=== PATIENT | female | born 1985 | race Caucasian/White ===

== ENCOUNTER → 2016-08-31 | Outpatient (CLI) | payer OTHER ==
--- NOTE | 2016-09-01 06:03 | US ---
EXAMINATION TYPE: US OB <=14 wks transvag DATE OF EXAM: 08/31/2016 5:06 PM COMPARISON: NONE CLINICAL HISTORY: O46.91 Spotting First Trimester. EXAM PERFORMED: Transvaginal (TV) and EXAM MEASUREMENTS: GESTATIONAL AGE / DATING Physician Established: Not yet established Dates by LMP: (6 weeks/6 days) EDC: 04/20/17 Dates by First Scan: 1st scan today Dates by Current Scan for: ( 6 weeks/2 days) EDC: 04/24/17 MATERNAL ANATOMY Uterus: 9.1 x 5.1 x 6.5cm Right Ovary: Not visualized due to overlying bowel gas Left Ovary: 1.6 x 1.1 x 1.2 Post CDS / Adnexa: wnl Presence of free fluid: yes ff in cul de sac Presence of subchorionic bleed: none identified GESTATION / SURVEY CRL: 5.1 ( 6 weeks/2 days) Yolk Sac (normal less than 6mm): 2mm Heart Rate: 127 bpm IUP: Viable IUP Date of LMP: 07/14/16 Beta HcG (if available): Not currently available TECHNOLOGIST IMPRESSION: Viable IUP dates above Single live intrauterine gestation is seen as gestational sac, yolk sac, and pole are identifie d. Small amount of free fluid is seen in pelvic cul-de-sac towards end of exam. Right ovary is not seen. Left ovary is present. No suspicious solid or cystic adnexal masses are seen . IMPRESSION: Single live intrauterine gestation is seen, mean crown-rump length is 5.1 cm corresponding to 6 week 2 day old fetus.
== END | disposition home or self-care (01) ==
LOC: RADUSWWP 16:15
PROVIDERS: ATTEND Obstetrics & Gynecology
DX: O46.91 Antepartum hemorrhage, unspecified, first trimester (principal); Z3A.01 Less than 8 weeks gestation of pregnancy
CPT/HCPCS: 76801; 76817; 84702; 86850; 86900; 86901

== ENCOUNTER → 2016-09-21 | Outpatient (CLI) | payer OTHER ==
[2016-09-21 11:06] LABS: CH 28.4; CHCM 32.4; HCT 40.5 % (34.0-46.0); HDW 2.22; HGB 13.2 gm/dL (11.4-16.0); MCH 28.7 pg (25.0-35.0); MCHC 32.6 g/dL (31.0-37.0); MCV 88.1 fL (80.0-100.0); Mean Platelet Volume 6.2; RBC 4.59 m/uL (3.80-5.40); RDW 12.3 % (11.5-15.5); WBC 7.9 k/uL (3.8-10.6)
[2016-09-21 11:29] LABS: Glucose 74 mg/dL (74-99); Non-African American GFR(MDRD) >60 (>60 ml/min/1.73 sqM)
[2016-09-21 12:00] LABS: Hepatitis B Surface Ag Index 0.05
[2016-09-22 07:46] LABS: HIV-1/HIV-2 Ab Screen NONREAC (NON REAC)
== END ==
LOC: LABWHC1 10:09
PROVIDERS: ATTEND Obstetrics & Gynecology
DX: Z34.01 Encounter for supervision of normal first pregnancy, first trimester (principal)
CPT/HCPCS: 36415; 82565; 82947; 85027; 86762; 86780; 87340; 87389

== ENCOUNTER → 2017-01-06 | Outpatient (CLI) | payer OTHER ==
[2017-01-06 10:55] LABS: CH 29.5; HCT 36.5 % (34.0-46.0); MCH 29.6 pg (25.0-35.0); MCHC 32.9 g/dL (31.0-37.0); MCV 89.9 fL (80.0-100.0); Mean Platelet Volume 6.8; RBC 4.05 m/uL (3.80-5.40); RDW 14.6 % (11.5-15.5); WBC 9.6 k/uL (3.8-10.6)
== END | disposition home or self-care (01) ==
LOC: LABWHC1 09:48
PROVIDERS: ATTEND Obstetrics & Gynecology
DX: Z34.02 Encounter for supervision of normal first pregnancy, second trimester (principal)
CPT/HCPCS: 36415; 82950; 85027

== ENCOUNTER 2017-04-22 11:37 | Outpatient (CLI) | payer OTHER ==
[2017-04-22 12:33] VITALS: BP 140/79; PULSE 85; RESP 18; TEMP 97.2
--- NOTE | 2017-04-23 11:08 | P.MSEPDOC ---
Presenting Problems - Arrival Data Date of Arrival on Unit: 04/22/17 Time of Arrival on Unit: 11:40 Mode of Transport: Ambulatory - Complaint OB-Reason for Admission/Chief Complaint: NST Comment: NST for post dates Medical History - Information : 1 Para: 0 Term: 0 : 0 Abortions: Spontaneous or Elective: 0 Number of Living Children: 0 - Gestational Age Gestational Age by YECENIA (wks/days): 40 Weeks and 2 Days Review of Systems - Review of Systems Constitutional: No problems Breast: No problems ENT: No problems Cardiovascular: No problems Respiratory: No problems Gastrointestinal: No problems Genitourinary: No problems Musculoskeletal: No problems Neurological: No problems Skin: No problems Vital Signs - Temperature Temperature: 97.2 F Temperature Source: Temporal Artery Scan - Pulse Brachial Pulse Rate: 85 Pulse Assessment Method: Automatic Cuff - Respirations Respiratory Rate: 18 Oxygen Delivery Method: Room Air - Blood Pressure Right Arm Blood Pressure: 140/79 Blood Pressure Mean: 99 Blood Pressure Source: Automatic Cuff Medical Screen Scoring (Pre) - Cervical Exam Dilation: Exam Deferred Effacement: Exam Deferred - Uterine Contractions Frequency: N/A Duration: N/A Intensity: N/A - Maternal Vital Signs Maternal Temperature: N/A Maternal Blood Pressure: N/A Signs of Preeclampsia: N/A Maternal Respirations: N/A - Pain Assessment Pain Scale Used: Numeric (1 - 10) Pain Intensity: 0 - Maternal Trauma Maternal Trauma: N/A - Assessment Baseline FHR: 150 Heart Rate - NICHD Category: Category I (Normal) = 0 NST: Reactive Position: N/A Station: N/A - Total Score Total Score (Pre): 0 - Level of Risk Level of Risk: Low (0-5) Physician Notification (Pre) - Physician Notified Physician Notified Date: 04/22/17 Physician Notified Time: 12:00 Physician/Practitioner Notifed:: Dr. Marin Spoke With: Dr. Marin New Order Received: Yes - Notification Comment Comment: discharge pt home Disposition - Disposition OB Disposition: Triage, Discharge to home, Written follow up instructions reviewed Discharge Date: 04/22/17 Discharge Time: 12:15 I agree with the RN Medical Screening Exam: Yes Risk & Benefit of care provided described in d/c instruction: Yes Diagnosis: POST-TERM
== END 2017-04-22 12:15 | disposition home or self-care (01) ==
LOC: FBPOP 11:37
PROVIDERS: ATTEND Obstetrics & Gynecology
DX: O48.0 Post-term pregnancy (principal); Z3A.40 40 weeks gestation of pregnancy
CPT/HCPCS: 59025; 99213

== ENCOUNTER 2017-04-25 06:00 | Inpatient (IN) | payer OTHER ==
--- NOTE | 2017-04-24 21:29 | P.HPOB ---
History of Present Illness H&P Date: 04/24/17 Chief Complaint: Induction of labor This is a 32 y.o. female, 1, para 0, with an estimated date of confinement of 04/20/2017, estimated gestational age of 40-5/7 weeks, who presents for induction of labor for post-dates. She has irregular contractions and pressure. She has been getting NSTs twice weekly since her due date. 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 Review of Systems Constitutional: Denies chills, Denies fever Eyes: denies blurred vision, denies pain Cardiovascular: Denies chest pain, Denies shortness of breath Respiratory: Denies cough Gastrointestinal: Reports abdominal pain (irreg. ctxs) Genitourinary: Denies dysuria, Denies hematuria Musculoskeletal: Denies myalgias Integumentary: Denies pruritus, Denies rash Neurological: Denies numbness, Denies weakness Endocrine: Denies fatigue Past Medical History Past Medical History: No Reported History Past Surgical History: No Surgical Hx Reported Past Anesthesia/Blood Transfusion Reactions: No Reported Reaction Past Psychological History: No Psychological Hx Reported Smoking Status: Former smoker Past Alcohol Use History: None Reported Past Drug Use History: None Reported - Past Family History Mother Family Medical History: Hypertension Medications and Allergies Home Medications Medication Instructions Recorded Confirmed Type No Known Home Medications [No 04/22/17 04/22/17 History Known Home Medications] Allergies Allergy/AdvReac Type Severity Reaction Status Date / Time No Known Allergies Allergy Verified 04/22/17 11:45 Exam Osteopathic Statement: *. No significant issues noted on an osteopathic structural exam other than those noted in the History and Physical/Consult. HEENT:within normal limits Heart:Regular rate and rhythm Lungs: Clear to auscultation bilaterally Abdomen: heart tones: 140 by doppler Cervix: 1 cm/70%/-1 Extremities: Negative Renetta's Assessment and Plan (1) Postmaturity , 40-42 weeks gestation Status: Acute Code(s): O48.0 - POST-TERM SNOMED Code(s): 39486657 Plan: Admission for induction of labor. Oxytocin induction of labor. Expectant management.
[2017-04-25] MEDS ORDERED: METHYLERGONOVINE 0.2 MG/ML 1 ML AMP IM PRN (06:15)
[2017-04-25] MEDS ORDERED: CARBOPROST TROMETHAMINE 250 MCG/ML 1 ML AMP IM PRN (06:15)
[2017-04-25] MEDS ORDERED: TERBUTALINE 1 MG/ML VIAL SQ PRN (06:15)
[2017-04-25] MEDS ORDERED: OXYTOCIN 10 UNIT/ML 1 ML VIAL IM PRN (06:15)
[2017-04-25] MEDS ORDERED: LIDOCAINE 1% (PF) 10 MG/ML (30 ML SDV) SQ PRN (06:15)
[2017-04-25] MEDS ORDERED: LIDOCAINE 1% 20 ML VIAL (10MG/ML) FOR IV START INTRADERMA PRN (06:15)
[2017-04-25] MEDS ORDERED: OXYTOCIN 20 UNITS/1000 ML NS 1,000 ML IV SCH (06:15)
[2017-04-25] MEDS: LACTATED RINGERS 1,000 ML IV SCH ×3 (06:24→18:34)
[2017-04-25 06:37] LABS: Basophils % (A) 0 %; CH 29.2; CHCM 32.6; Eosinophils # (A) 0.2 k/uL (0-0.7); Eosinophils % (A) 2 %; HCT 41.9 % (34.0-46.0); HDW 2.62; HGB 13.5 gm/dL (11.4-16.0); Luc % (Auto) 1; Lymphocytes # (A) 1.3 k/uL (1.0-4.8); Lymphocytes % (A) 16 %; MCH 28.8 pg (25.0-35.0); MCHC 32.1 g/dL (31.0-37.0); MCV 89.9 fL (80.0-100.0); Mean Platelet Volume 7.3; Monocytes # (A) 0.4 k/uL (0-1.0); Monocytes % (A) 4 %; Neutrophils # (A) 6.2 k/uL (1.3-7.7); Neutrophils % (A) 76 %; RBC 4.67 m/uL (3.80-5.40); RDW 13.7 % (11.5-15.5); WBC 8.1 k/uL (3.8-10.6); WBC (Perox) 8.05
[2017-04-25] MEDS ORDERED: BUPIVACAINE (PF) 0.25% 30 ML VIAL ONE (17:39)
[2017-04-25] MEDS ORDERED: SODIUM CHLORIDE 0.9% 100 ML BAG ONE (17:39)
[2017-04-25] MEDS ORDERED: fentaNYL (PF) 50 MCG/ML 5 ML AMP ONE (17:39)
[2017-04-25] MEDS ORDERED: BUPIVACAINE (PF) 0.25% 25 ML, fentaNYL (PF) 200 MCG in SODIUM CHLORIDE 0.9% 71 ML EPIDURAL ONE (17:59)
--- NOTE | 2017-04-26 03:17 | P.PROBDLV ---
Vaginal Delivery Note - . Vaginal Delivery Note: The patient underwent oxytocin induction of labor. She did receive epidural when she reached approximate 3 cm. When she progressed to complete dilation, she began pushing. 's head came to a crown. Perineum was anesthetized with 1% lidocaine and then a midline episiotomy was cut. With one further push , the infant's head delivered across the perineum and a left occiput anterior lie. Nose and mouth were bulb suctioned at the perineum. With one further push , the remainder of the infant delivered reducing a shoulder cord around the body. Infant was placed on mother's abdomen and cord was clamped and cut. was then taken to warmer for evaluation. A viable male is noted with scores of 8 at 1 minute and 9 at 5 minutes and infant weight of 7 lbs. 11 oz. Placenta delivered shortly thereafter, intact, with a three-vessel cord. Uterus contracted fairly well after oxytocin was given and uterine massage was carried out. Inspection of the perineum revealed a midline episiotomy with no further extension. As area was anesthetized with 1% lidocaine and then sutured with 3-0 and 2-0 Vicryl suture in the usual multilayer fashion. There was a smaller first-degree laceration in the vagina on the left side. This area was anesthetized with 1% lidocaine and then sutured with 3-0 Vicryl suture in a running locked fashion. Mother is in stable condition is taken to the nursery for observation. Estimated blood loss is approximately 200 mL's.
[2017-04-26] MEDS ORDERED: OXYTOCIN 20 UNITS/1000 ML NS 1,000 ML IV SCH (03:25)
[2017-04-26] MEDS ORDERED: SIMETHICONE 80 MG CHEWABLE PO PRN (03:25)
[2017-04-26] MEDS ORDERED: BENZOCAINE/MENTHOL SPRAY 1 GM/SPRAY AEROSOL TOPICAL PRN (03:25)
[2017-04-26] MEDS ORDERED: diphenhydrAMINE 25 MG CAP PO PRN (03:25)
[2017-04-26] MEDS ORDERED: WITCH HAZEL 1 EACH MED..PAD TOPICAL PRN (03:25)
[2017-04-26] MEDS ORDERED: ZOLPIDEM 5 MG TAB PO PRN (03:25)
[2017-04-26] MEDS ORDERED: diphenhydrAMINE 50 MG CAP PO PRN (03:25)
[2017-04-26] MEDS ORDERED: diphenhydrAMINE 50 MG/ML 1 ML VIAL IVP PRN ×2 (03:25)
[2017-04-26] MEDS ORDERED: HYDROCORTISONE 2.5% RECTAL CREAM 30 GM TUBE RECTAL PRN (03:25)
[2017-04-26] MEDS ORDERED: ACETAMINOPHEN TAB 325 MG TAB PO PRN (03:25)
[2017-04-26] MEDS ORDERED: LANOLIN CREAM 5 GM TUBE TOPICAL PRN (03:25)
[2017-04-26] MEDS ORDERED: MEASLES-MUMPS-RUBELLA VACC/PF 12,500 UNIT/0.5 ML VIAL SQ ONE (03:25)
[2017-04-26] MEDS: IBUPROFEN 600 MG TAB PO PRN ×3 (07:44→19:43)
[2017-04-26] MEDS: SENNOSIDES-DOCUSATE SODIUM 1 EACH TAB PO SCH ×2 (07:45→19:44)
[2017-04-26 09:49] LABS: Basophils % (A) 0 %; CH 28.4; CHCM 32.6; Eosinophils % (A) 0 %; HCT 31.7 % (34.0-46.0); HDW 2.51; Luc # (Auto) 0.05; Luc % (Auto) 0; Lymphocytes # (A) 0.6 k/uL (1.0-4.8); Lymphocytes % (A) 4 %; MCH 28.7 pg (25.0-35.0); MCHC 32.7 g/dL (31.0-37.0); MCV 87.7 fL (80.0-100.0); Mean Platelet Volume 7.7; Monocytes # (A) 0.4 k/uL (0-1.0); Monocytes % (A) 3 %; Neutrophils # (A) 13.6 k/uL (1.3-7.7); Neutrophils % (A) 93 %; RBC 3.62 m/uL (3.80-5.40); RDW 14.5 % (11.5-15.5); WBC 14.7 k/uL (3.8-10.6); WBC (Perox) 15.98
[2017-04-26 09:51] LABS: HGB 10.4 gm/dL (11.4-16.0)
[2017-04-27] MEDS: SENNOSIDES-DOCUSATE SODIUM 1 EACH TAB PO SCH ×2 (07:44→23:48)
[2017-04-27] MEDS: IBUPROFEN 600 MG TAB PO PRN ×2 (07:45→23:47)
--- NOTE | 2017-04-27 08:07 | P.PNOBGVD ---
Subjective - Subjective Principal diagnosis: S/P vaginal delivery day #1 Interval history: Patient is doing well. She is breast-feeding. Lochia is decreasing. Pain is fairly well controlled. Patient reports: Reports appetite normal, Reports voiding normally, Reports pain well controlled, Reports ambulating normally : doing well, nursing well Objective - Latest Vital Signs Latest vital signs: Vital Signs Temp Pulse Resp BP Pulse Ox 04/27/17 00:00 97.9 F 80 18 120/81 98 04/26/17 16:00 98.2 F 72 16 126/77 04/26/17 11:56 97.8 F 71 16 126/78 Intake and Output 04/26/17 04/27/17 04/27/17 22:59 06:59 14:59 Intake Total 1200 Balance 1200 Intake: Oral 1200 Other: # Voids 2 1 - Exam Extremities: Present: normal. Absent: tenderness, edema Abdomen: Present: normal appearance, soft. Absent: tenderness Uterus: Present: normal, firm. Absent: tenderness - Labs Labs: Abnormal Lab Results - Last 24 Hours (Table) 04/26/17 Range/Units 08:49 WBC 14.7 H (3.8-10.6) k/uL RBC 3.62 L (3.80-5.40) m/uL Hgb 10.4 L D (11.4-16.0) gm/dL Hct 31.7 L (34.0-46.0) % Neutrophils # 13.6 H (1.3-7.7) k/uL Lymphocytes # 0.6 L (1.0-4.8) k/uL Assessment and Plan Assessment: Impression is status post vaginal delivery day #1. (1) Postmaturity , 40-42 weeks gestation Current Visit: Yes Status: Acute Code(s): O48.0 - POST-TERM SNOMED Code(s): 15770824 Plan: Plan is to continue with care. Anticipate discharge home tomorrow.
[2017-04-28] MEDS: IBUPROFEN 600 MG TAB PO PRN (08:00)
[2017-04-28] MEDS ORDERED: DIPH,PERTUS(ACELL)TETVAC-LF 0.5 ML VIAL IM ONE (08:01)
[2017-04-28 08:11] VITALS: BP 132/85; PULSE 80; RESP 20; TEMP 97.8
--- NOTE | 2017-04-28 08:54 | P.DS ---
Providers Date of admission: 04/25/17 06:06 Expected date of discharge: 04/28/17 Attending physician: Naina Marin Primary care physician: Stated None - Discharge Diagnosis(es) (1) Postmaturity , 40-42 weeks gestation Current Visit: Yes Status: Acute Hospital Course: This is a 32-year-old female 1 para 0 at 40-5/7 weeks who presented for induction of labor. She underwent oxytocin induction of labor on 04/25/2017 and delivered a viable male on 04/26/2017 with scores of 8 at 1 minute and 9 at 5 minutes and infant weight of 7 lbs. 11 oz. Her course has been essentially uncomplicated. She is breast-feeding. Lochia is decreasing. Pain is fairly well controlled with ibuprofen. Vital signs are stable. Abdomen is soft with fundus firm and nontender. Extremities show negative Homans. Impression is status post vaginal delivery day #2. An is to discharge home today. Routine instructions are given. She will be given a prescription for a breast pump. She also will be given prescriptions for ibuprofen. She is advised to follow up in the office in 6 weeks for check. She is advised to call the office if she has any further questions or concerns prior to her appointment time. Procedures: Pitocin induction of labor Spontaneous vaginal delivery of a viable male on 04/26/2017 Patient Condition at Discharge: Stable Plan - Discharge Summary New Discharge Prescriptions: New RX: Ibuprofen [Motrin] 600 mg PO Q6HR PRN #60 tab PRN Reason: Mild Pain Or Fever >= 100.5 Discharge Medication List RX: Ibuprofen [Motrin] 600 mg PO Q6HR PRN #60 tab 04/28/17 [Rx] Follow up Appointment(s)/Referral(s): Naina Marin DO [Doctor of Osteopathic Medicine] - 6 Weeks Patient Instructions/Handouts: Vaginal Delivery (DC) Activity/Diet/Wound Care/Special Instructions: Instructions 1. Do not begin any exercise program for 3 weeks. 2. Do not resume sexual relations for 3 weeks or longer if uncomfortable. 3. You may take tub baths or showers at any time. 4. You may use tampons if desired after 3 weeks. 5. Keep the area of episiotomy (stitches) clean and dry. 6. If you are not nursing, wear a good fitting, supportive bra during the day and limit fluid intake for at least 1 week to prevent breast engorgement. 7. Call the office, [phone], within the next week to make appointment for your 6 week checkup if it has not already been made. 8. Report any of the following occurrences to the doctor promptly: a. Heavy, excessive bleeding b. Chills, fever c. Burning or frequency of urination d. Pain or redness and breasts if nursing e. Increasing pain or swelling in episiotomy (stitches). In addition to the above instructions, the following additional should be followed: 1. No heavy lifting or straining (exercising) until after 6 week checkup. 2. Keep abdominal incision clean and dry: You may wear a dressing if more comfortable. 3. Make office appointment for 10 days after going home or as instructed by her doctor. Discharge Disposition: HOME SELF-CARE
[2017-04-28] MEDS: SENNOSIDES-DOCUSATE SODIUM 1 EACH TAB PO SCH (10:17)
== END 2017-04-28 11:00 | disposition home or self-care (01) | DRG 775 ==
LOC: 4FBP 06:06
PROVIDERS: ADMIT Obstetrics & Gynecology; ATTEND Obstetrics & Gynecology
PROC: 10E0XZZ Delivery of Products of Conception, External Approach (ICD-10-PCS; principal; 2017-04-25)
PROC: 10907ZC Drainage of Amniotic Fluid, Therapeutic from Products of Conception, Via Natural or Artificial Opening (ICD-10-PCS; principal; 2017-04-25)
PROC: 3E0R3BZ Introduction of Anesthetic Agent into Spinal Canal, Percutaneous Approach (ICD-10-PCS; principal; 2017-04-25)
PROC: 0W8NXZZ Division of Female Perineum, External Approach (ICD-10-PCS; principal; 2017-04-25)
PROC: 00HU33Z Insertion of Infusion Device into Spinal Canal, Percutaneous Approach (ICD-10-PCS; principal; 2017-04-25)
PROC: 0HQ9XZZ Repair Perineum Skin, External Approach (ICD-10-PCS; principal; 2017-04-25)
PROC: 3E033VJ Introduction of Other Hormone into Peripheral Vein, Percutaneous Approach (ICD-10-PCS; principal; 2017-04-25)
DX: O48.0 Post-term pregnancy (principal); O70.0 First degree perineal laceration during delivery; Z87.891 Personal history of nicotine dependence; Z37.0 Single live birth; Z3A.40 40 weeks gestation of pregnancy
CPT/HCPCS: 85025; 88307; 90707; 90715

== ENCOUNTER 2019-03-29 08:29 | Outpatient (CLI) | payer OTHER, BC ==
[2019-03-29 08:57] VITALS: BP 131/74; PULSE 78; RESP 16; TEMP 97.8
--- NOTE | 2019-04-16 23:52 | P.MSEPDOC ---
Presenting Problems - Arrival Data Date of Arrival on Unit: 03/29/19 Time of Arrival on Unit: 08:28 Mode of Transport: Ambulatory - Complaint OB-Reason for Admission/Chief Complaint: Rule Out SROM Comment: jocelyne toonoe, 8 Medical History - Information : 2 Para: 1 Term: 1 : 0 Abortions: Spontaneous or Elective: 0 Number of Living Children: 1 - Gestational Age Gestational Age by YECENIA (wks/days): 40 Weeks and 1 Days Review of Systems - Review of Systems Constitutional: No problems Breast: No problems ENT: No problems Cardiovascular: No problems Respiratory: No problems Gastrointestinal: No problems Genitourinary: No problems Musculoskeletal: No problems Neurological: No problems Skin: No problems Vital Signs - Temperature Temperature: 97.8 F Temperature Source: Temporal Artery Scan - Pulse Right Brachial Pulse Rate: 78 Pulse Assessment Method: Automatic Cuff - Respirations Respiratory Rate: 16 Oxygen Delivery Method: Room Air O2 Sat by Pulse Oximetry: 99 - Blood Pressure Right Arm Sitting Blood Pressure: 131/74 Blood Pressure Mean: 93 Blood Pressure Source: Automatic Cuff Medical Screen Scoring (Pre) - Cervical Exam Dilation: 1-3 cm = 1 Membranes: Intact - Uterine Contractions Frequency: > or = 36 weeks =2 Duration: N/A Intensity: N/A - Assessment - Baby A Baseline FHR: 135 Heart Rate - NICHD Category: Category I (Normal) = 0 NST: Reactive Position: N/A Station: N/A - Total Score - Baby A Total Score - Baby A: 3 - Total Score - Baby B Total Score - Baby B: 3 - Total Score - Baby C Total Score - Baby C: 3 - Level of Risk - Baby A Level of Risk - Baby A: Low (0-5) - Level of Risk - Baby B Level of Risk - Baby B: Low (0-5) - Level of Risk - Baby C Level of Risk - Baby C: Low (0-5) Medical Screen Scoring (Post) - Cervical Exam Dilation: 1-3 cm = 1 Effacement: Exam Deferred Membranes: Intact - Uterine Contractions Frequency: > 5 minutes apart = 1 Duration: N/A Intensity: N/A - Assessment - Baby A Heart Rate: 135 Heart Rate - NICHD Category: Category I (Normal) = 0 NST: Reactive - Total Score Total Score - Baby A: 2 Total Score - Baby B: 2 Total Score - Baby C: 2 - Post Treatment Level of Risk Post Treatment Level of Risk - Baby A: Low (0-5) Post Treatment Level of Risk - Baby B: Low (0-5) Post Treatment Level of Risk - Baby C: Low (0-5) Disposition - Disposition OB Disposition: Discharge to home, Written follow up instructions reviewed Discharge Date: 03/29/19 Discharge Time: 09:10 I agree with the RN Medical Screening Exam: Yes Risk & Benefit of care provided described in d/c instruction: Yes Diagnosis: FALSE LABOR BEFORE 37 COMPLETED WEEKS OF GEST, THIRD TRI
== END 2019-03-29 09:10 | disposition home or self-care (01) ==
LOC: FBPOP 08:29
PROVIDERS: ATTEND Obstetrics & Gynecology
DX: O47.03 False labor before 37 completed weeks of gestation, third trimester (principal); Z3A.40 40 weeks gestation of pregnancy
CPT/HCPCS: 59025; 84112; 99213

== ENCOUNTER 2019-03-30 05:10 | Inpatient (IN) | payer BC, OTHER ==
[2019-03-30] MEDS: LACTATED RINGERS 1,000 ML IV SCH ×2 (05:40→06:03)
[2019-03-30] MEDS ORDERED: METHYLERGONOVINE 0.2 MG/ML 1 ML AMP IM PRN (05:41)
[2019-03-30] MEDS ORDERED: TERBUTALINE 1 MG/ML VIAL SQ PRN (05:41)
[2019-03-30] MEDS ORDERED: LIDOCAINE 0.5% (PF) 5 MG/ML (50 ML SDV) SQ PRN (05:41)
[2019-03-30] MEDS ORDERED: CARBOPROST TROMETHAMINE 250 MCG/ML 1 ML AMP IM PRN (05:41)
[2019-03-30] MEDS ORDERED: OXYTOCIN 10 UNIT/ML 1 ML VIAL IM PRN (05:41)
[2019-03-30 05:48] LABS: Basophils % (A) 0 %; Eosinophils # (A) 0.2 k/uL (0-0.7); Eosinophils % (A) 3 %; HCT 39.3 % (34.0-46.0); HGB 13.2 gm/dL (11.4-16.0); Lymphocytes # (A) 0.9 k/uL (1.0-4.8); Lymphocytes % (A) 9 %; MCH 29.7 pg (25.0-35.0); MCHC 33.5 g/dL (31.0-37.0); MCV 88.5 fL (80.0-100.0); Monocytes # (A) 0.3 k/uL (0-1.0); Monocytes % (A) 4 %; Neutrophils # (A) 7.7 k/uL (1.3-7.7); Neutrophils % (A) 83 %; Platelet Count 188 k/uL (150-450); RBC 4.44 m/uL (3.80-5.40); RDW 13.8 % (11.5-15.5); WBC 9.2 k/uL (3.8-10.6)
[2019-03-30] MEDS ORDERED: ROPIVACAINE 5MG/ML 20ML VIAL ONE (06:10)
[2019-03-30] MEDS ORDERED: fentaNYL (PF) 50 MCG/ML 5 ML AMP ONE (06:10)
[2019-03-30] MEDS ORDERED: SODIUM CHLORIDE 0.9% 100 ML BAG ONE (06:10)
[2019-03-30 07:00] VITALS: BMI 26.8
--- NOTE | 2019-03-30 08:43 | P.HPOB ---
History of Present Illness H&P Date: 03/30/19 Chief Complaint: Labor 34-year-old presents at 40 weeks and 2 days in active labor. Her cervix was 7 cm dilated, 80% effaced, -2 station. She is cate irregularly every 7-12 minutes. heart tones are 1:30 with moderate variability and reactive. Review of Systems All systems: negative Constitutional: Denies chills, Denies fever Eyes: denies blurred vision, denies pain Ears, nose, mouth and throat: Denies headache, Denies sore throat Cardiovascular: Denies chest pain, Denies shortness of breath Respiratory: Denies cough Gastrointestinal: Denies abdominal pain, Denies diarrhea, Denies nausea, Denies vomiting Genitourinary: Denies dysuria, Denies hematuria Musculoskeletal: Denies myalgias Integumentary: Denies pruritus, Denies rash Neurological: Denies numbness, Denies weakness Psychiatric: Denies anxiety, Denies depression Endocrine: Denies fatigue, Denies weight change Past Medical History Past Medical History: No Reported History Additional Past Medical History / Comment(s): Obstetric history: First was a vaginal delivery at 40 weeks and 5 days, 7 lbs. 11 oz. This is her second . She's had care with Dr. Marin. Blood type A+, antibodies negative, rubella immune, RPR nonreactive, hepatitis B negative. History of Any Multi-Drug Resistant Organisms: None Reported Past Surgical History: No Surgical Hx Reported Past Anesthesia/Blood Transfusion Reactions: No Reported Reaction Past Psychological History: No Psychological Hx Reported Smoking Status: Former smoker Past Alcohol Use History: None Reported Past Drug Use History: None Reported - Past Family History Mother Family Medical History: Diabetes Mellitus, Hypertension Father Family Medical History: Hypertension Medications and Allergies Home Medications Medication Instructions Recorded Confirmed Type RX: Ibuprofen [Motrin] 600 mg PO Q6HR PRN #60 tab 04/28/17 Rx Allergies Allergy/AdvReac Type Severity Reaction Status Date / Time No Known Allergies Allergy Verified 03/29/19 08:48 Exam Osteopathic Statement: *. No significant issues noted on an osteopathic structural exam other than those noted in the History and Physical/Consult. Vital Signs Temp Pulse Resp BP 03/30/19 05:39 98.3 F 88 16 123/66 Intake and Output 03/29/19 03/30/1903/30/19 22:59 06:59 14:59 Other: Weight 75.296 kg Heart: Regular rate and rhythm Lungs: Clear to auscultation bilaterally Abdomen: Soft, nontender Extremities: Negative Homans sign Results Result Diagrams: 03/30/19 05:40 Abnormal Lab Results - Last 24 Hours (Table) 03/30/19 Range/Units 05:40 Lymphocytes # 0.9 L (1.0-4.8) k/uL Assessment and Plan (1) Postmaturity , 40-42 weeks gestation Current Visit: No Status: Acute Code(s): O48.0 - POST-TERM SNOMED Code(s): 01820818017069 Plan: 1. Admit to family place 2. Expectant management 3. Anticipate normal vaginal delivery
--- NOTE | 2019-03-30 09:40 | P.PROBDLV ---
Vaginal Delivery Note - . Vaginal Delivery Note: 34-year-old presents at 40 weeks and 2 days in active labor. Her cervix was 7 cm dilated, 80% effaced, -2 station. She is acte irregularly every 7-12 minutes. heart tones are 130 with moderate variability and reactive. Patient did get an epidural and was comfortable. Amniotomy was performed at 6:40 AM clear fluid noted. Her cervix was completely dilated at 9:06 AM. She pushed, delivered a viable female over intact perineum under epidural anesthesia at 924. Head delivered OA, anterior shoulder delivered gentle downward guidance. The posterior shoulder and rest of body. Nose and mouth bulb suctioned, cord was cut, infant placed mother's abdomen. Apgars 9, 9, weight 7 lbs. 10 oz. Placenta delivered spontaneously, intact with three-vessel cord at 9:27 AM. Vagina, cervix, and perineum were inspected. First-degree midline laceration was repaired with 3-0 Vicryl. Estimated blood loss 200 mL. Mother and baby in stable condition.
[2019-03-30] MEDS ORDERED: ZOLPIDEM 5 MG TAB PO PRN (10:06)
[2019-03-30] MEDS ORDERED: diphenhydrAMINE 50 MG CAP PO PRN (10:06)
[2019-03-30] MEDS ORDERED: HYDROCORTISONE 2.5% RECTAL CREAM 30 GM TUBE RECTAL PRN (10:06)
[2019-03-30] MEDS ORDERED: diphenhydrAMINE 25 MG CAP PO PRN (10:06)
[2019-03-30] MEDS ORDERED: LANOLIN CREAM 5 GM TUBE TOPICAL PRN (10:06)
[2019-03-30] MEDS ORDERED: WITCH HAZEL 1 EACH MED..PAD TOPICAL PRN (10:06)
[2019-03-30] MEDS ORDERED: diphenhydrAMINE 50 MG/ML 1 ML VIAL IVP PRN ×2 (10:06)
[2019-03-30] MEDS ORDERED: BENZOCAINE/MENTHOL SPRAY 1 GM/SPRAY AEROSOL TOPICAL PRN (10:06)
[2019-03-30] MEDS ORDERED: SIMETHICONE 80 MG CHEWABLE PO PRN (10:06)
[2019-03-30] MEDS ORDERED: ACETAMINOPHEN TAB 325 MG TAB PO PRN (10:06)
[2019-03-30] MEDS ORDERED: OXYTOCIN 20 UNITS/1000 ML NS 1,000 ML IV SCH (10:15)
[2019-03-30] MEDS: IBUPROFEN 600 MG TAB PO PRN (18:23)
[2019-03-30] MEDS ORDERED: SENNOSIDES-DOCUSATE SODIUM 1 EACH TAB PO SCH (20:00)
[2019-03-31] MEDS: IBUPROFEN 600 MG TAB PO PRN (05:36)
[2019-03-31 08:34] VITALS: BP 119/75; PULSE 70; RESP 16; TEMP 97.8
[2019-03-31] MEDS ORDERED: INFLUENZA VACCINE (6 MOS+) 60 MCG/0.5 ML SYRINGE IM ONE (09:00)
--- NOTE | 2019-03-31 10:07 | P.DS ---
Providers Date of admission: 03/30/19 05:37 Expected date of discharge: 03/31/19 Attending physician: Naina Marin Primary care physician: Stated None - Discharge Diagnosis(es) (1) Postmaturity , 40-42 weeks gestation Current Visit: No Status: Resolved (2) Status post normal vaginal delivery Current Visit: Yes Status: Acute Hospital Course: Patient presented in active labor. She underwent a normal vaginal delivery. Her course was uncomplicated. She'll be discharged home day #1 in stable condition to follow-up with Dr. Marin in 6 weeks. Plan - Discharge Summary Discharge Rx Participant: No New Discharge Prescriptions: New Ibuprofen [Motrin] 600 mg PO Q6HR PRN #30 tab PRN Reason: Mild Pain Or Fever >= 100.5 No Action Ibuprofen [Motrin] 600 mg PO Q6HR PRN #60 tab PRN Reason: Mild Pain Or Fever >= 100.5 Discharge Medication List Ibuprofen [Motrin] 600 mg PO Q6HR PRN #60 tab 04/28/17 [Rx] Ibuprofen [Motrin] 600 mg PO Q6HR PRN #30 tab 03/31/19 [Rx] Follow up Appointment(s)/Referral(s): Ria Rodriguez DO [Doctor of Osteopathic Medicine] - 6 Weeks Patient Instructions/Handouts: Vaginal Delivery (DC) Discharge Disposition: HOME SELF-CARE
== END 2019-03-31 10:30 | disposition home or self-care (01) | DRG 807 ==
LOC: FBPOP 05:10 → 4FBP 05:37
PROVIDERS: ADMIT Obstetrics & Gynecology; ATTEND Obstetrics & Gynecology
PROC: 10E0XZZ Delivery of Products of Conception, External Approach (ICD-10-PCS; 2019-03-30)
PROC: 0HQ9XZZ Repair Perineum Skin, External Approach (ICD-10-PCS; 2019-03-30)
PROC: 00HU33Z Insertion of Infusion Device into Spinal Canal, Percutaneous Approach (ICD-10-PCS; 2019-03-30)
PROC: 3E0R3BZ Introduction of Anesthetic Agent into Spinal Canal, Percutaneous Approach (ICD-10-PCS; 2019-03-30)
PROC: 3E02340 Introduction of Influenza Vaccine into Muscle, Percutaneous Approach (ICD-10-PCS; principal; 2019-03-31)
DX: O48.0 Post-term pregnancy (principal); Z37.0 Single live birth; O70.0 First degree perineal laceration during delivery; Z3A.40 40 weeks gestation of pregnancy; Z23 Encounter for immunization; Z79.899 Other long term (current) drug therapy; Z87.891 Personal history of nicotine dependence; Z82.49 Family history of ischemic heart disease and other diseases of the circulatory system; Z83.3 Family history of diabetes mellitus
CPT/HCPCS: 85025; 86850; 86900; 86901

== ENCOUNTER 2023-04-07 23:50 | Inpatient (IN) | payer BC, OTHER ==
[2023-04-08] MEDS ORDERED: CARBOPROST TROMETHAMINE 250 MCG/ML 1 ML AMP IM PRN (01:01)
[2023-04-08] MEDS ORDERED: TRANEXAMIC 1,000 MG/100ML-NACL 1,000 MG in EMPTY BAG 1 BAG IV PRN (01:01)
[2023-04-08] MEDS ORDERED: LIDOCAINE 0.5% (PF) 5 MG/ML (50 ML SDV) SQ PRN (01:01)
[2023-04-08] MEDS ORDERED: TERBUTALINE 1 MG/ML VIAL SQ PRN (01:01)
[2023-04-08] MEDS ORDERED: OXYTOCIN 10 UNIT/ML 1 ML VIAL IM PRN (01:01)
[2023-04-08] MEDS ORDERED: miSOPROStoL 200 MCG TAB PO PRN (01:01)
[2023-04-08] MEDS ORDERED: METHYLERGONOVINE 0.2 MG/ML 1 ML AMP IM PRN (01:01)
[2023-04-08] MEDS: LACTATED RINGERS 1,000 ML IV SCH ×2 (01:17→05:33)
[2023-04-08 01:50] LABS: Basophils % (A) 0 %; Eosinophils # (A) 0.1 k/uL (0-0.7); Eosinophils % (A) 1 %; HCT 40.1 % (34.0-46.0); HGB 13.6 gm/dL (11.4-16.0); Lymphocytes # (A) 1.5 k/uL (1.0-4.8); Lymphocytes % (A) 15 %; MCH 29.4 pg (25.0-35.0); MCHC 33.8 g/dL (31.0-37.0); MCV 87.1 fL (80.0-100.0); Mean Platelet Volume 7.8; Monocytes # (A) 0.5 k/uL (0-1.0); Monocytes % (A) 5 %; Neutrophils # (A) 7.9 k/uL (1.3-7.7); Neutrophils % (A) 78 %; Platelet Count 188 k/uL (150-450); RBC 4.61 m/uL (3.80-5.40); RDW 14.4 % (11.5-15.5); WBC 10.1 k/uL (3.8-10.6)
[2023-04-08] MEDS ORDERED: OXYTOCIN 30 UNITS/500 ML NS 30 UNIT in SALINE 1 500ML.BAG IV SCH ×2 (02:30→11:30)
--- NOTE | 2023-04-08 07:27 | P.HPOB ---
History of Present Illness H&P Date: 04/08/23 Chief Complaint: Spontaneous rupture of membranes This is a 38-year-old female 3 para 2 at 38-5/7 weeks with an estimated date of confinement of 04/17/2023, who presents to labor and delivery with complaints of continuous rupture membranes at approximately 7:30 or 8:00 last night. She states she felt a few gushes, but was unsure if it was water or not. She denies feeling any regular strong contractions. Her course has been uncomplicated. labs: Group B streptococcus-negative Hemoglobin-12.8 1 hour Glucola-83 [id number] Blood type-A+ Rubella-immune RPR-nonreactive HIV-nonreactive Hepatitis B surface antigen-negative Hepatitis C virus-nonreactive Random glucose-81 Antibody screen-negative GC/minutes/Trichomonas-negative Obstetrical history: . History of 2 vaginal deliveries at term. Gynecologic history: No history of sexual transmitted diseases Social history: She is . She is a homemaker. Review of Systems Constitutional: Denies chills, Denies fever Eyes: denies blurred vision, denies pain Ears, nose, mouth and throat: Denies headache, Denies sore throat Cardiovascular: Denies chest pain, Denies shortness of breath Respiratory: Denies cough Gastrointestinal: Reports abdominal pain (Occasional contractions) Genitourinary: Reports pelvic pain, Reports Musculoskeletal: Reports low back pain Integumentary: Denies pruritus, Denies rash Neurological: Denies numbness, Denies weakness Psychiatric: Denies anxiety, Denies depression Past Medical History Past Medical History: No Reported History History of Any Multi-Drug Resistant Organisms: None Reported Past Surgical History: No Surgical Hx Reported Past Anesthesia/Blood Transfusion Reactions: No Reported Reaction Past Psychological History: No Psychological Hx Reported Smoking Status: Never smoker Past Alcohol Use History: Occasional Past Drug Use History: None Reported - Past Family History Mother Family Medical History: Diabetes Mellitus, Hypertension Father Family Medical History: Hypertension Medications and Allergies Allergies Allergy/AdvReac Type Severity Reaction Status Date / Time No Known Allergies Allergy Verified 04/08/23 00:22 Exam Osteopathic Statement: *. No significant issues noted on an osteopathic structural exam other than those noted in the History and Physical/Consult. Intake and Output 04/07/23 04/08/23 04/08/23 22:59 06:59 14:59 Intake Total 1.5 Balance 1.5 Intake: Intake, IV Titration 1.5 Amount Oxytocin 30 Units/500 ml 1.5 Ns 30 unit In Saline 1 500ml.bag @ Per Protocol IV .Q0M [facility] Rx#:[id number] Other: Weight 75.296 kg HEENT: Within normal limits Heart: Regular rate and rhythm Lungs: Clear to auscultation bilaterally Abdomen: Cervix: 2-3 cm/50%/-2 station heart tones: Category 1 Contractions: Irregular Extremities: Negative Homans Results Result Diagrams: 04/08/23 01:15 Abnormal Lab Results - Last 24 Hours (Table) 04/08/23 Range/Units 01:15 Neutrophils # 7.9 H (1.3-7.7) k/uL Assessment and Plan (1) 38 weeks gestation of Current Visit: Yes Status: Acute Code(s): Z3A.38 - 38 WEEKS GESTATION OF SNOMED Code(s): 54312861 (2) Spontaneous rupture of membranes Current Visit: Yes Status: Acute Code(s): EQV8698 - SNOMED Code(s): 002744164 Plan: Admission for spontaneous rupture membranes. Oxytocin augmentation of labor if necessary. Pain medication and if necessary. Expectant management.
--- NOTE | 2023-04-08 08:55 | P.MSEPDOC ---
Presenting Problems - Arrival Data Date of Arrival on Unit: 04/08/23 Time of Arrival on Unit: 01:00 Mode of Transport: Ambulatory - Complaint OB-Reason for Admission/Chief Complaint: Rule Out SROM Comment: pt presents to OB triage with complaints of possible SROM around 8 pm. states. soaked thru her pants when she stood up. has had a few more gushes but no steady. trickle. denies foul odor, denies color Medical History - Information : 3 Para: 2 Term: 2 : 0 Abortions: Spontaneous or Elective: 0 Number of Living Children: 2 - Gestational Age Gestational Age by YECENIA (wks/days): 38 Weeks and 5 Days - History Comment: questionable marginal insertion cord per pt. 2 term vag deliveries per history with last only pushing less than 5 cm Review of Systems - Review of Systems Constitutional: No problems Breast: No problems ENT: No problems Cardiovascular: No problems Respiratory: No problems Gastrointestinal: No problems Genitourinary: No problems Musculoskeletal: No problems Neurological: No problems Skin: No problems Vital Signs - Temperature Temperature: 98.4 F Temperature Source: Oral - Pulse Right Pulse Rate: 78 Pulse Assessment Method: Automatic Cuff - Respirations Respiratory Rate: 16 O2 Sat by Pulse Oximetry: 98 - Blood Pressure Right Arm Blood Pressure: 122/69 Blood Pressure Mean: 86 Blood Pressure Source: Automatic Cuff Medical Screen Scoring - Cervical Exam Dilation (cm): 2.5 Effacement (%): 50 Station: -3 - Uterine Contractions Frequency From (mins): 3 Frequency To (mins): 10 Duration From (seconds): 30 Duration To (seconds): 50 Intensity: Mild Resting: Soft to palpation - Assessment - Baby A Baseline FHR: 130 Heart Rate - NICHD Category: Category I (Normal) NST: Reactive Physician Notification - Physician Notified Physician Notified Date: 04/08/23 Physician Notified Time: 00:50 Physician: Dr Tomas Ruiz Order Received: Yes - Notification Comment Comment: admit for labor Maternal Triage Index - Maternal Triage Index Presenting for scheduled procedure w/no complaint: No - Stat/Priority 1 Stat Priority 1: No - Urgent/Priority 2 Urgent Priority 2: No - Prompt/Priority 3 Prompt Priority 3: No - Non-Urgent/Priority 4 Non-Urgent Priority 4: Yes Criteria Met for Priority 4: 38 5/7 SROM [address] Marin updated with pts reason for visit of suspected srom around 8pm. clear. fluid, no odor, nst reactive cat 1 fhr. irreg contractions pt is not feeling at this. time. order received to admit for labor Disposition - Disposition OB Disposition: Admit I agree with the RN Medical Screening Exam: Yes Case reviewed; plan agreed upon as documented in EMR&OBIX.: Yes Diagnosis: ENCOUNTER FOR FULL-TERM UNCOMPLICATED DELIVERY
--- NOTE | 2023-04-08 11:29 | P.PROBDLV ---
Vaginal Delivery Note - . Vaginal Delivery Note: The patient progressed to complete dilation after oxytocin augmentation of labor and she did receive nitrous oxide for pain control. Once reaching complete, she began pushing. Infant's head came to a crown and then with one push she delivered the 's head across the perineum followed by the anterior shoulder. Nose and mouth were bulb suctioned at the perineum. With one further push, the remainder the infant easily delivered and was placed on mother's abdomen. Cord was cut and cut after allowing cord to pulsate for approximately 30 seconds. A viable female infant is noted with scores of 8 at 1 minute and 9 at 5 minutes and infant weight of 7 lbs. 1 oz. Placenta delivered approximately 15 minutes later intact with a three-vessel cord. Marginal cord insertion was noted. Uterus did contract fairly well after oxytocin was given and uterine massage was carried out. Inspection of the perineum revealed no perineal lacerations. She did have some mild abrasions that were noted to be hemostatic. Estimated blood loss is approximately 100 mL's. Both mother and are in stable condition.
[2023-04-08] MEDS ORDERED: ACETAMINOPHEN TAB 325 MG TAB PO PRN (11:30)
[2023-04-08] MEDS ORDERED: diphenhydrAMINE 50 MG CAP PO PRN (11:30)
[2023-04-08] MEDS ORDERED: BENZOCAINE/MENTHOL SPRAY 1 GM/SPRAY AEROSOL TOPICAL PRN (11:30)
[2023-04-08] MEDS ORDERED: HYDROCORTISONE 2.5% RECTAL CREAM 30 GM TUBE RECTAL PRN (11:30)
[2023-04-08] MEDS ORDERED: diphenhydrAMINE 50 MG/ML 1 ML VIAL IVP PRN ×2 (11:30)
[2023-04-08] MEDS ORDERED: LANOLIN CREAM 5 GM TUBE TOPICAL PRN (11:30)
[2023-04-08] MEDS ORDERED: diphenhydrAMINE 25 MG CAP PO PRN (11:30)
[2023-04-08] MEDS ORDERED: ZOLPIDEM 5 MG TAB PO PRN (11:30)
[2023-04-08] MEDS ORDERED: SIMETHICONE 80 MG CHEWABLE PO PRN (11:30)
[2023-04-08] MEDS ORDERED: IBUPROFEN 600 MG TAB PO PRN (11:30)
[2023-04-08] MEDS: SENNOSIDES-DOCUSATE SODIUM 1 EACH TAB PO SCH ×2 (11:43→20:50)
--- NOTE | 2023-04-09 05:57 | P.DS ---
Providers Date of admission: 04/08/23 00:42 Expected date of discharge: 04/09/23 Attending physician: Naina Marin Primary care physician: Stated None - Discharge Diagnosis(es) (1) 38 weeks gestation of Current Visit: Yes Status: Acute (2) Spontaneous rupture of membranes Current Visit: Yes Status: Acute Hospital Course: This is a 38-year-old female 3 para 2 at 38-5/7 weeks who presented with spontaneous rupture membranes. She underwent oxytocin augmentation of labor and delivered vaginally a viable female infant on 04/08/2023 with scores of 8 at 1 minute and 9 at 5 minutes and weight of 7 lbs. 1 oz. Her course has been uncomplicated. She is breast-feeding. Lochia is decreasing. Her pain is fairly well controlled. Vital signs are stable. Abdomen is soft with fundus firm and nontender. Extremities show negative Homans. Impression is status post vaginal delivery day #1. Plan is to discharge home today. Routine instructions are given. She will be given a prescription for a breast pump. She declines a need for any pain medication. She is advised to call the office if she has any further questions or concerns prior to her appointment time. Procedures: Oxytocin augmentation of labor Spontaneous vaginal delivery of a viable female on 04/08/2023 Patient Condition at Discharge: Stable Plan - Discharge Summary Discharge Rx Participant: No Follow up Appointment(s)/Referral(s): Naina Marin DO [Doctor of Osteopathic Medicine] - 6 Weeks Activity/Diet/Wound Care/Special Instructions: Instructions 1. Do not begin any exercise program for 3 weeks. 2. Do not resume sexual relations for 3 weeks or longer if uncomfortable. 3. You may take tub baths or showers at any time. 4. You may use tampons if desired after 3 weeks. 5. Keep the area of episiotomy (stitches) clean and dry. 6. If you are not nursing, wear a good fitting, supportive bra during the day and limit fluid intake for at least 1 week to prevent breast engorgement. 7. Call the office, [phone], within the next week to make appointment for your 6 week checkup if it has not already been made. 8. Report any of the following occurrences to the doctor promptly: a. Heavy, excessive bleeding b. Chills, fever c. Burning or frequency of urination d. Pain or redness and breasts if nursing e. Increasing pain or swelling in episiotomy (stitches). In addition to the above instructions, the following additional should be followed: 1. No heavy lifting or straining (exercising) until after 6 week checkup. 2. Keep abdominal incision clean and dry: You may wear a dressing if more comfortable. 3. Make office appointment for 10 days after going home or as instructed by her doctor. Discharge Disposition: HOME SELF-CARE
[2023-04-09 06:26] LABS: Basophils % (A) 0 %; Eosinophils # (A) 0.2 k/uL (0-0.7); Eosinophils % (A) 1 %; HCT 39.1 % (34.0-46.0); Lymphocytes # (A) 1.6 k/uL (1.0-4.8); Lymphocytes % (A) 15 %; MCH 28.9 pg (25.0-35.0); MCHC 33.1 g/dL (31.0-37.0); MCV 87.4 fL (80.0-100.0); Mean Platelet Volume 7.4; Monocytes # (A) 0.4 k/uL (0-1.0); Monocytes % (A) 4 %; Neutrophils # (A) 8.4 k/uL (1.3-7.7); Neutrophils % (A) 79 %; Platelet Count 217 k/uL (150-450); RBC 4.48 m/uL (3.80-5.40); RDW 14.1 % (11.5-15.5); WBC 10.7 k/uL (3.8-10.6)
[2023-04-09] MEDS: SENNOSIDES-DOCUSATE SODIUM 1 EACH TAB PO SCH (09:56)
[2023-04-09 09:58] VITALS: BP 125/82; PULSE 68; RESP 18; TEMP 98.3
== END 2023-04-09 13:39 | disposition home or self-care (01) | DRG 807 ==
LOC: FBPOP 23:50 → 4FBP 04-08 00:42
PROVIDERS: ADMIT Obstetrics & Gynecology; ATTEND Obstetrics & Gynecology
PROC: 10E0XZZ Delivery of Products of Conception, External Approach (ICD-10-PCS; principal; 2023-04-08)
DX: O42.02 Full-term premature rupture of membranes, onset of labor within 24 hours of rupture (principal); O43.193 Other malformation of placenta, third trimester; Z28.310 Unvaccinated for COVID-19; Z3A.38 38 weeks gestation of pregnancy; Z37.0 Single live birth
CPT/HCPCS: 59025; 84112; 85025; 86850; 86900; 86901; 99213